=== PATIENT | male | born 1975 | race African-American/Black ===

== ENCOUNTER 2020-12-14 01:41 | Emergency (ER) | payer SELFPAY ==
[~2020-12-14] VITALS: Ht 172.7 cm; Wt 75.0 kg
[2020-12-14 03:55] VITALS: BP 136/85
== END 2020-12-14 04:12 | disposition left against medical advice (07) ==
LOC: ER 01:41
DX: Z53.21 Procedure and treatment not carried out due to patient leaving prior to being seen by health care provider (principal)